=== PATIENT | male | born 1940 | race Caucasian/White ===

== ENCOUNTER 2020-06-22 10:29 | Inpatient (IN) | payer MEDICARE, BC ==
[~2020-06-22] VITALS: Ht 177.8 cm; Wt 88.6 kg
[2020-06-22 11:15] LABS: BASO % 0.2 % (0.0-2.0); EOS % 0.1 % (0-4.0); GRAN # 11.5 (1.4-6.5); GRAN % 86.4 % (42.2-75.2); HEMOGLOBIN 11.9 g/dl (13.5-18.0); LYMPH # 0.5 (1.2-3.4); LYMPH % 3.8 % (20.0-51.0); MEAN CELL VOLUME 96 fl (80.0-100.0); MEAN CORPUSCULAR HEMOGLOBIN 32 pg (27.0-31.0); MEAN CORPUSCULAR HGB CONC 33 g/dl (33.0-37.0); MONO # 1.2 (0.1-0.6); PLATELET COUNT 223 K/mm3 (130-400); RED BLOOD COUNT 3.77 M/mm3 (4.20-5.60); REDCELL DISTRIBUTION WIDTH-CV 12.2 % (11.5-14.5)
[2020-06-22 11:21] LABS: ALBUMIN 4.8 gm/dL (3.5-5.0); BILIRUBIN,TOTAL 0.7 mg/dL (0.0-1.0); CALCIUM 10.5 mg/dL (8.4-10.2); CREATININE, serum 1.92 (0.66-1.25); POTASSIUM 5.3 mmol/L (3.4-5.0); TOTAL PROTEIN 8.6 gm/dL (6.4-8.2)
[2020-06-22 11:24] LABS: HEMATOCRIT 36.1 % (42.0-52.0)
[2020-06-22 14:31] LABS: COLLECTION METHOD CLEAN CATCH
[2020-06-22 14:54] LABS: PH 5 (5-8); SQUAMOUS EPITHELIAL 0-2 /hpf; URINE APPEARANCE Hazy; URINE BACTERIA None Seen /hpf; URINE BILIRUBIN Negative (NEGATIVE); URINE BLOOD Negative (NEGATIVE); URINE COLOR Yellow; URINE GLUCOSE 3+ (NEGATIVE); URINE KETONE Trace (NEGATIVE); URINE LEUKOCYTE ESTERASE Trace (NEGATIVE); URINE NITRATE Negative (NEGATIVE); URINE PROTEIN(semi-quant) 1+ (NEGATIVE); URINE RBC 0-2 /hpf; URINE UROBILINOGEN Negative (NEGATIVE)
[2020-06-23 10:19] VITALS: BP 129/53; PULSE 102; TEMP 98.1
[2020-06-23 11:41] VITALS: BP 135/55; PULSE 91; TEMP 98.2
[2020-06-23] MEDS ORDERED: GLUCOPHAGE1000 MG PO (14:14)
[2020-06-23 15:27] VITALS: BP 107/53; PULSE 89; TEMP 98.2
[2020-06-23 15:31] LABS: CALCIUM 8.7 mg/dL (8.4-10.2); CREATININE, serum 2.54 (0.66-1.25); POTASSIUM 4.6 mmol/L (3.4-5.0)
[2020-06-23] MEDS ORDERED: PROTONIX 40MG T40 MG PO (17:02)
[2020-06-23] MEDS ORDERED: AMARYL4 MG PO (17:03)
[2020-06-23] MEDS ORDERED: TIROSINT50 MC1 PO (17:05)
[2020-06-23] MEDS ORDERED: FOLBIC 2 MG-2.51 TAB PO (17:05)
[2020-06-23] MEDS ORDERED: NORVASC 10MG10 MG PO (17:06)
[2020-06-23] MEDS ORDERED: NEURONTIN600 MG/TAB PO (17:06)
[2020-06-23] MEDS ORDERED: PAXIL40 MG PO (17:07)
[2020-06-23] MEDS ORDERED: LIPITOR 80MG80 MG PO (17:08)
[2020-06-23] MEDS ORDERED: REMERON45 MG PO (17:09)
[2020-06-23] MEDS ORDERED: ARICEPT 5MG PO (17:09)
--- NOTE | 2020-06-23 19:08 | NUR ---
Patient has done well throughout the day. Dr. Cherry consulted today for DM management. Educated patient on all new medications and medication changes. [place] given for abdominal pain. Patient has been incontinent of urine today, pericare provided. IV fluids infusing per orders to right AC IV. Lap sites x 4 with edges well approximated. Denies further needs at this time. Reported off to overnight associate.
[2020-06-23 19:35] VITALS: BP 135/58; PULSE 87; TEMP 98.5
[2020-06-23 23:52] VITALS: BP 129/64; PULSE 92; TEMP 100.1
--- NOTE | 2020-06-24 | NUR ---
ORAL TEMP 100.1. ENC TCDB. ORDERED I.S. RT NOTIFIED.
--- NOTE | 2020-06-24 00:54 | NUR ---
REVIEWED IMPORTANCE OF TCDB. PT HAS VERY WEAK COUGH. NOTIFIED RT EARLIER NEED FOR IS. GAVE PT PAIN MED FOR BETTER EFFECTS OF COUGH AND DEEP BREATH.
[2020-06-24 04:21] VITALS: BP 130/67; PULSE 80; TEMP 98.5
[2020-06-24 05:43] LABS: BASO % 0.3 % (0.0-2.0); EOS # 0.1 (0.0-0.7); GRAN # 10.3 (1.4-6.5); GRAN % 78.5 % (42.2-75.2); LYMPH # 1.6 (1.2-3.4); LYMPH % 12.1 % (20.0-51.0); MEAN CORPUSCULAR HGB CONC 32 g/dl (33.0-37.0); MONO % 7.6 % (1.7-9.3); PLATELET COUNT 169 K/mm3 (130-400)
[2020-06-24 05:55] LABS: CALCIUM 8.4 mg/dL (8.4-10.2); CREATININE, serum 2.46 (0.66-1.25); MAGNESIUM 2.3 mg/dL (1.6-2.3); POTASSIUM 4.2 mmol/L (3.4-5.0)
[2020-06-24 05:56] LABS: HEMATOCRIT 30.2 % (42.0-52.0); MEAN CORPUSCULAR HEMOGLOBIN 32 pg (27.0-31.0)
[2020-06-24 05:59] LABS: HEMOGLOBIN 9.5 g/dl (13.5-18.0)
[2020-06-24 06:00] LABS: MEAN CELL VOLUME 101 fl (80.0-100.0)
[2020-06-24 08:00] VITALS: BP 125/87; PULSE 98; TEMP 98.5
--- NOTE | 2020-06-24 08:00 | NUR ---
Patient in bed resting. Alert and oriented to self. Fluids infusing per orders. Lap sites x 4 with edges well approximated. Patient up to restroom with stand by assist then to recliner for breakfast. Abdomen distended, bowel sounds hypoactive. Patient states he has been passing gas throughout the night. Denies further needs at this time.
[2020-06-24 11:57] VITALS: BP 127/56; PULSE 86; TEMP 98.8
[2020-06-24 15:00] VITALS: BP 149/59; PULSE 79; TEMP 98.1
--- NOTE | 2020-06-24 19:02 | NUR ---
Patient has done well throughout the day. Has been up with assistance in room. Has been up multiple times to restroom to void, no BM today. Sat in recliner for meals today. Occassionally incontinent of urine, pericare provided. Patient has requested pain meds for abd pain, medications were given per orders. Denies further needs at this time. Will report off to maintenance supervisor 2nd shift.
[2020-06-24 19:46] VITALS: BP 166/61; PULSE 86; TEMP 98.5
--- NOTE | 2020-06-24 20:48 | NUR ---
WEANING O2 OFF. WILL RECHECK O2 SAT IN 1 HR
[2020-06-24 23:38] VITALS: BP 147/60; PULSE 81; TEMP 98.3
--- NOTE | 2020-06-25 02:18 | NUR ---
PTAWAKE. BED ALARM SOUINDING. ASSISTING PT TO BSC TO VOID. PT UNSTEADY. BACK TO BED. OFFERED AMB FOR STIFFNESS. PT DECLINED. WILL GIVE PAIN MED WHEN TIME. TOOK SCD'S OFF FOR ALITTLE WHILE. ENC USE OF IS. PT NEEDS RE INSTRUCTED FOR PROPER USE FOR EFFECTIVENESS. PT NOW ABLE TO PULL 1000CC. ENC TO COUGH. HASD WEAK COUGH D/T ABD INCISIONAL DISCOMFORT. PT REPORTS PASSING FLATUS. CALL LIGHT IN REACH. BED ALARM SET.
[2020-06-25 03:53] VITALS: BP 160/69; PULSE 85; TEMP 98.3
[2020-06-25 07:34] VITALS: BP 114/70; PULSE 87; TEMP 98.1
[2020-06-25 10:22] LABS: CALCIUM 8.2 mg/dL (8.4-10.2); CREATININE, serum 1.64 (0.66-1.25); MAGNESIUM 2.2 mg/dL (1.6-2.3); POTASSIUM 3.6 mmol/L (3.4-5.0)
--- NOTE | 2020-06-25 10:48 | NUR ---
PT UP TO BR AFTER BREAKFAST. HAD LG FORMED BM. RETURNED TO BED WITH SBAX1. AM MEDS GIVEN. PT DENIES NEEDS AT THIS TIME. VSS AM ASSESSMENTS WNL.
[2020-06-25] MEDS ORDERED: GLUCOPHAGE500 MG/TAB PO (11:06)
[2020-06-25] MEDS ORDERED: NORCO 325 MG-51 TAB PO (11:08)
[2020-06-25] MEDS ORDERED: OMNICEF 300MG300 MG PO (11:08)
--- NOTE | 2020-06-25 11:29 | NUR ---
CALLED PT'S AND ASKED FOR CLOTHES SO PT CAN DISCHARGE. SHE WILL BRING CLOTHES FOR PT.
--- NOTE | 2020-06-25 12:37 | NUR ---
DISCHARGE INSTRUCTIONS REVIEWED WITH PT. PT TO ED PER WHEEL CHAIR FOR DISCHARGE.
--- NOTE | 2020-06-25 13:32 | NUR ---
Plan is to rturn home with Talisha. SW met with patient about his care. Patient reports that his handles most things. Patient reports that his prefered pham[facility]. Patient reports that his PCP is Dr. Espino in [place]. POA is . Denies that use of any DME. Patient angela referencd for information. Nothing follows.
== END 2020-06-25 12:00 | disposition home or self-care (01) | DRG 418 ==
LOC: COL.ER 10:29 → SURG 06-23 10:08
PROVIDERS: Emergency Medicine; Internal Medicine; ADMIT Surgery
PROC: 0FT44ZZ Resection of Gallbladder, Percutaneous Endoscopic Approach (ICD-10-PCS; principal; 2020-06-23)
PROC: 8E0W4CZ Robotic Assisted Procedure of Trunk Region, Percutaneous Endoscopic Approach (ICD-10-PCS; 2020-06-23)
DX: K80.00 Calculus of gallbladder with acute cholecystitis without obstruction (principal); N17.9 Acute kidney failure, unspecified; K82.1 Hydrops of gallbladder; E11.65 Type 2 diabetes mellitus with hyperglycemia; N18.9 Chronic kidney disease, unspecified; E87.5 Hyperkalemia; Z79.84 Long term (current) use of oral hypoglycemic drugs
CPT/HCPCS: 99223; 99232-AI; A9284; J0330; J0360; J0690; J1815; J1885; J2270; J2370; J2405; J2543; J2704; J3010; J7030

== ENCOUNTER 2022-01-20 14:01 | Emergency (ER) | payer MEDICARE, BC ==
[~2022-01-20] VITALS: Ht 177.8 cm; Wt 95.5 kg
[~2022-01-20 14:01] MED LIST: AMARYL4 MG PO; ARICEPT 5MG PO; FOLBIC 2 MG-2.51 TAB PO; GLUCOPHAGE1000 MG PO; GLUCOPHAGE500 MG/TAB PO; LIPITOR 80MG80 MG PO; NEURONTIN600 MG/TAB PO; NORCO 325 MG-51 TAB PO; NORVASC 10MG10 MG PO; OMNICEF 300MG300 MG PO; PAXIL40 MG PO; PROTONIX 40MG T40 MG PO; REMERON45 MG PO; TIROSINT50 MC1 PO
[2022-01-20 14:07] VITALS: TEMP 97.4
[2022-01-20] MEDS ORDERED: CEPHALEXIN500 M1 PO (14:22)
[2022-01-20 14:28] VITALS: BP 146/72; PULSE 80
== END 2022-01-20 14:28 | disposition home or self-care (01) ==
LOC: COL.ER 14:01
DX: L03.114 Cellulitis of left upper limb (principal); Z98.890 Other specified postprocedural states